=== PATIENT | male | born 1985 | race Caucasian/White ===

== ENCOUNTER 2018-06-12 14:33 | Emergency (ER) | payer BC, MEDICAID ==
[2018-06-12] MEDS: KETOROLAC 60 MG INJ IM (15:30)
== END 2018-06-12 16:55 | disposition home or self-care (01) ==
LOC: FTE 14:33
DX: M54.9 Dorsalgia, unspecified (principal)
CPT/HCPCS: 96372; 99284-25

== ENCOUNTER 2018-08-11 10:29 | Emergency (ER) | payer BC ==
[2018-08-11] MEDS: ONDANSETRON (ODT) 4 MG TAB ODT (11:17)
[2018-08-11] MEDS: LIDOCAINE/MYLANTA 40 ML BTL PO (11:17)
== END 2018-08-11 12:10 | disposition home or self-care (01) ==
LOC: FTE 10:29
DX: R10.13 Epigastric pain (principal); R11.10 Vomiting, unspecified; Z87.19 Personal history of other diseases of the digestive system
CPT/HCPCS: 99283